=== PATIENT | female | born 1980 | race Caucasian/White ===

== ENCOUNTER 2021-06-08 10:47 | Outpatient (CLI) | payer BC, SELFPAY ==
--- NOTE | ~2021-06-08 | MR_ITS ---
EXAMINATION: MR lumbar spine wo con DATE: 06/08/2021 12:01 INDICATION: Left-sided sciatica. TECHNIQUE: Magnetic resonance imaging (MRI) of the lumbar spine was performed without intravenous con trast. Sequences included sagittal T2-weighted FSE, sagittal T2-weighted FS FSE, sagittal T1-weighted FSE, and axial T2-weighted FSE. COMPARISON: None FINDINGS: There is 5 mm retrolisthesis of L5 on S1. Vertebral body heights are normal. There is moder ately decreased disc at L5-S1 with endplate remodeling. The distal spinal cord signal intensity is no rmal. The conus medullaris is at L1. The following disc levels are specifically discussed: L1-L2: The disc does not extend beyond the endplate margin. There is mild bilateral facet joint osteo arthritis. There is no neural foraminal stenosis. There is no central canal stenosis. L2-L3: The disc does not extend beyond the endplate margin. There is mild bilateral facet joint osteo arthritis. There is no neural foraminal stenosis. There is no central canal stenosis. L3-L4: The disc does not extend beyond the endplate margin. There is mild right and moderate left fac et joint osteoarthritis. There is no neural foraminal stenosis. There is no central canal stenosis. L4-L5: The disc does not extend beyond the endplate margin. There is mild bilateral facet joint osteo arthritis. There is no neural foraminal stenosis. There is no central canal stenosis. L5-S1: The disc is bulging with superimposed left central extrusion that abuts the bilateral S1 nerve roots in the lateral recesses. There is no facet joint osteoarthritis. There is moderate bilateral n eural foraminal stenosis. There is mild central canal stenosis. There is moderate stenosis of the lat eral recesses. IMPRESSION: 1. Moderate spondylosis at L5-S1. Reviewed, dictated and finalized at location A.
== END 2021-06-08 10:48 | disposition home or self-care (01) ==
PROVIDERS: Visit Provider Internal Medicine
DX: M47.897 Other spondylosis, lumbosacral region (principal)
CPT/HCPCS: 72148

== ENCOUNTER 2021-11-25 08:52 | Outpatient (CLI) | payer BC, SELFPAY ==
--- NOTE | ~2021-11-25 | MM_ITS ---
EXAMINATION: MM screening sujata BI w viviana HISTORY: Screening TECHNIQUE: Craniocaudal and mediolateral oblique 3-D tomosynthesis images were obtained and synthetic 2-D images were generated. CAD analysis was submitted and interpreted. COMPARISON: No prior mammogram is available for comparison at this institution. BREAST PARENCHYMAL COMPOSITION: There are scattered areas of fibroglandular density. FINDINGS: There are asymmetries in the outer aspect of the right breast on CC view. There are no susp icious masses, calcifications or architectural distortion in the left breast to suggest malignancy. IMPRESSION: 1. Asymmetries of the right breast laterally on CC view. 2. Additional spot compression and mediolateral views with possible follow-up breast ultrasound recom mended. BI-RADS Category 0: Incomplete: Needs additional imaging evaluation. Reviewed, dictated and finalized at location A. GRINDER IMPRESSION: 1. Asymmetries of the right breast laterally on CC view. 2. Additional spot compression and mediolateral views with possible follow-up b reast ultrasound recommended. BI-RADS Category 0: Incomplete: Needs additional imaging evaluation.
== END 2021-11-25 08:53 | disposition home or self-care (01) ==
PROVIDERS: PCP Internal Medicine; Visit Provider Obstetrics & Gynecology
DX: Z12.31 Encounter for screening mammogram for malignant neoplasm of breast (principal); R92.8 Other abnormal and inconclusive findings on diagnostic imaging of breast
CPT/HCPCS: 77063; 77067

== ENCOUNTER 2022-01-20 12:58 | Outpatient (CLI) | payer BC, SELFPAY ==
--- NOTE | ~2022-01-20 | MMUS_ITS ---
EXAMINATION: MM diagnostic sujata RT w viviana, US breast RT limited HISTORY: Right breast asymmetry on screening mammogram TECHNIQUE: Additional 3-D tomosynthesis images of the right breast were performed and synthetic 2-D i mages were generated. CAD analysis was submitted and interpreted. High resolution limited right breas t ultrasound was performed. COMPARISON: 11/25/2021 BREAST PARENCHYMAL COMPOSITION: There are scattered areas of fibroglandular density. FINDINGS: MAMMOGRAPHIC FINDINGS: No definite asymmetry persists with spot compression views of the right breast. There is no suspiciou s mass, calcification, or architectural distortion. ULTRASOUND: There is a 7 mm cyst at the 9:00 location 5 cm from the nipple. IMPRESSION: 1. No mammographic or sonographic evidence of malignancy. 2. Recommend routine screening mammography in one year. BI-RADS Category 2: Benign finding(s). Reviewed, dictated and finalized at location A. IMPRESSION: 1. No mammographic or sonographic evidence of malignancy. 2. Recommend routine screening mammography in one year. BI-RADS Category 2: Benign finding(s).
== END 2022-01-20 12:59 | disposition home or self-care (01) ==
LOC: ANHIMG 13:04
PROVIDERS: PCP Internal Medicine; Visit Provider Obstetrics & Gynecology
DX: R92.8 Other abnormal and inconclusive findings on diagnostic imaging of breast (principal)
CPT/HCPCS: 76642; 77061; 77065; G0279

== ENCOUNTER 2022-02-18 10:18 | Emergency (ER) | payer BC, SELFPAY ==
[2022-02-18 10:26] VITALS: BP 124/82; PULSE 88; RESP 18; TEMP 36.7; O2SAT 100
--- NOTE | 2022-02-18 10:57 | ED.URI ---
HPI - URI/Sore Throat General Chief Complaint: Upper Respiratory Infection Stated Complaint: bilateral ear,neck pain,bilateral arm pain Time Seen by Provider: 02/18/22 10:49 Source: patient and RN notes reviewed Mode of arrival: ambulatory Limitations: no limitations History of Present Illness HPI Narrative: Patient presents today complaining of a 2-day history of sore throat, headache, body aches, rhinorrhea, cough, and bilateral ear pressure. Denies fever or any additional symptoms. Denies sick contacts. Patient has been taking Delsym, Aleve, and NyQuil at home without much relief. She has been vaccinated against COVID-19. MD elicited complaint: cough and sore throat Related Data Home Medications Medication Instructions Recorded Confirmed No Home Medications 02/18/22 02/18/22 Allergies Allergy/AdvReac Type Severity Reaction Status Date / Time No Known Drug Allergies Allergy Unknown Verified 02/18/22 10:37 Review of Systems Review of Systems: CONSTITUTIONAL: Denies fever, chills, or sweats.+ Body aches EYES: Denies visual changes, redness, or discharge. ENT: Denies congestion. + Sore throat, bilateral ear pressure, rhinorrhea CARDIOVASCULAR: Denies chest pain, palpitations, or edema. RESPIRATORY: Denies dyspnea.+ Cough GASTROINTESTINAL: Denies abdominal pain, nausea, vomiting, or diarrhea. GENITOURINARY: Denies dysuria or hematuria. SKIN: Denies rash, itching, or wounds. MUSCULOSKELETAL: Denies back pain, joint pain, or myalgia. NEUROLOGIC: Denies numbness, tingling, or weakness.+ Headache PSYCH: Denies depression or anxiety. PMFSH Comments At time of signature, I have reviewed and agree with nursing past medical, surgical, social and family history unless otherwise noted. Please see nursing chart for further information. There is no relevant family history pertinent to the presenting complaint Exam Narrative: GENERAL: Well-appearing, well-nourished, and in no acute distress. HEAD: Normocephalic, atraumatic. EYES: EOMI. No redness or drainage. Conjunctivae normal. ENT: Mucous membranes pink and moist. Nares clear. No rhinorrhea. TMs normal bilaterally. Throat erythematous posteriorly without edema or exudate. Uvula midline. NECK: Normal AROM. Supple. No lymphadenopathy. CHEST: No respiratory distress. Clear to auscultation. HEART: Regular rate and rhythm. No murmur appreciated. Normal peripheral pulses. EXTREMITIES: Normal range of motion. No edema. SKIN: Warm, dry, no rash. Capillary refill normal. Normal skin turgor. NEURO: No focal deficits. Alert and oriented x3. Gait steady. PSYCH: Normal affect. No signs of depression or anxiety. Course Course Level of Care: Express Care Visit Vital Signs Vital signs: Vital Signs Temperature 98.0 F 02/18/22 10:26 Pulse Rate 88 02/18/22 10:26 Respiratory Rate 18 02/18/22 10:26 Blood Pressure 124/82 02/18/22 10:26 Pulse Oximetry 100 02/18/22 10:26 Temperature 98.0 F 02/18/22 10:26 Pulse Rate 88 02/18/22 10:26 Respiratory Rate 18 02/18/22 10:26 Blood Pressure 124/82 02/18/22 10:26 Pulse Oximetry 100 02/18/22 10:26 Reviewed. Pt has been instructed to follow up with her PCP regarding her elevated blood pressure today. MDM - URI/Sore Throat Differential Diagnosis Differential diagnosis: Likely upper respiratory infection, otitis media, sinusitis, viral infection, influenza, pharyngitis and other (Strep throat, COVID-19) Lab Data Attestation: I reviewed the patient's lab results. Lab results narrative: Rapid COVID-19 positive. Influenza negative Labs: Strep Screen Presumptive Negative *(Reference Range: Negative)* Critical Care Time Critical Care Time Critical Care Time: No Discharge Plan Discharge Clinical Impression: COVID-19 Patient Disposition: Home, Self-Care Condition: Stable Instructions: COVID-19 (Coronavirus Disease 2019) (ED)
== END 2022-02-18 11:06 | disposition home or self-care (01) ==
PROVIDERS: Emergency Provider Nurse Practitioner; PCP Internal Medicine
DX: U07.1 COVID-19 (principal)
CPT/HCPCS: 87081; 87426; 87804; 87880; 99213; C9803; G0463

== ENCOUNTER 2025-07-30 12:02 | Emergency (ER) | payer BC, SELFPAY ==
[2025-07-30 12:07] VITALS: BP 125/73; PULSE 67; RESP 18; TEMP 36.5; O2SAT 99
--- NOTE | 2025-07-30 12:12 | ED.URI ---
HPI - URI/Sore Throat General Chief Complaint: Upper Respiratory Infection Stated Complaint: Sinus Infection Time Seen by Provider: 07/30/25 12:10 Source: patient Mode of arrival: ambulatory Limitations: no limitations History of Present Illness HPI Narrative: Jet is a 44-year-old female patient presenting to the clinic today with complaints of sinus pressure, sinus congestion, and ear pain. She reports her symptoms have been going on for approximately 1 month. Was originally seen and diagnosed with a URI and given cough medications, a week later she develops cough and some shortness of breath was seen and diagnosed with pneumonia and had finished taking 5 days of Augmentin. States that she feels as though her chest is better she still has sinus pressure and congestion. Is blowing out green nasal drainage. States that the Augmentin gave her very bad diarrhea while she was taking it. Denies any known fevers, chills, body aches. No shortness of breath or chest pain. Related Data Home Medications ?Medication ?Instructions ?Recorded ?Confirmed ?Last Taken ?Type albuterol sulfate 90 mcg/actuation 1 inh inhalation Q4-6H PRN 07/30/25 07/30/25 Unknown History breath activated powder inhaler,sensor levonorgestrel (Mirena) 1 device intrauterine ONCE 07/30/25 07/30/25 Unknown History semaglutide (weight loss) 2.4 2.4 mg subcut WEEKLY 07/30/25 07/30/25 Unknown History mg/0.75 mL subcutaneous pen injector (Wegovy) Allergies Allergy/AdvReac Type Severity Reaction Status Date / Time No Known Drug Allergies Allergy Unknown Unknown Verified 07/30/25 12:08 Review of Systems Review of Systems: Pertinent positives per HPI. Patient denies any fever, chills, rash, visual changes, dizziness, shortness of breath, chest pain, palpitations, nausea, vomiting, diarrhea, constipation, abdominal pain, or any urinary issues. [facility] Past Medical History Medical History Asthma Surgical History Surgical History History of ear surgery Bells teeth removed H/O adenoidectomy History of tonsillectomy Hx of dilation and curettage Family History Family History Grandparent Hypertension Dementia Macular degeneration Skin cancer Diabetes mellitus CHF (congestive heart failure) Father Acute myocardial infarction, Onset Age: 38 Mother Hypertension Pre-diabetes Breast cancer Social History Social History Smoking status: Former smoker Alcohol intake: current Alcohol use details: occas Substance use: never Comments At the time of my signature, I reviewed and agree with the nursing past medical, surgical, social, and family history. There is no relevant family history pertinent to the patient complaint. Exam Narrative: General: Well-developed, well nourished, in no apparent distress Head: Normocephalic, atraumatic Eyes: Pupils equally round and reactive to light bilaterally, EOM intact, sclera and conjunctive clear, no discharge, lids normal Ears: TMs intact and congested, ear canals clear, no drainage, grossly hearing normal. Nose: Nares patent, green nasal discharge, monitor inflammation, maxillary and frontal sinus tenderness. Mouth: Oral pharynx red without lesions or masses, good dentition, MMM. Postnasal drip Neck: Supple, trachea midline, no enlargement of anterior or posterior cervical nodes, no thyroid masses or goiter palpable. Cardio: Regular rate and rhythm, s1 and s2 normal, no murmur appreciated. Resp: Clear to auscultation bilaterally, no rhonchi, rales, wheezing or rubs Course Course Emergency Course: Portions of this record may have been created with voice recognition software. Level of Care: Express Care Visit Vital Signs Vital signs: Vital Signs Temperature 36.5 C 07/30/25 12:07 Pulse Rate 67 07/30/25 12:07 Respiratory Rate 18 07/30/25 12:07 Blood Pressure 125/73 07/30/25 12:07 Pulse Oximetry 99 07/30/25 12:07 Oxygen Delivery Room Air 07/30/25 12:07 Temperature 36.5 C 07/30/25 12:07 Pulse Rate 67 07/30/25 12:07 Respiratory Rate 18 07/30/25 12:07 Blood Pressure 125/73 07/30/25 12:07 Pulse Oximetry 99 07/30/25 12:07 Oxygen Delivery Room Air 07/30/25 12:07 Vital signs reviewed MDM - URI/Sore Throat MDM Narrative Medical decision making narrative: At the time of visit patient is resting comfortably on the exam table. Patient appears to be nontoxic. complaints of sinus pressure, sinus congestion, and ear pain. She reports her symptoms have been going on for approximately 1 month. Was originally seen and diagnosed with a URI and given cough medications, a week later she develops cough and some shortness of breath was seen and diagnosed with pneumonia and had finished taking 5 days of Augmentin. States that she feels as though her chest is better she still has sinus pressure and congestion. Is blowing out green nasal drainage. Denies any known fevers, chills, body aches. No shortness of breath or chest pain. Has taken Mucinex for her symptoms. On exam patient has sinus pressure over the maxillary and frontal sinuses with green nasal drainage and moderate inflammation to the anterior turbinates. Bilateral TMs congested and intact. Plan: I suspect patient has acute bacterial rhinosinusitis. Prescription for doxycycline and prednisone was sent to the pharmacy. Supportive measures were discussed with the patient and they voiced understanding discharge instructions and agrees to treatment plan. Return precautions reviewed Differential Diagnosis Differential diagnosis: Likely upper respiratory infection, otitis media, sinusitis, viral infection, bronchitis, influenza, pharyngitis and other (COVID) Discharge Plan Discharge Clinical Impression: Acute bacterial rhinosinusitis Patient Disposition: Home Condition: Stable Instructions: Antibiotic Form, Rhinosinusitis (ED) Additional Instructions: Take prescription medications only as prescribed-doxycycline and prednisone Increase fluids and stay well hydrated May take Tylenol or motrin as directed on bottle for pain/fever May use Flonase 1 spray in each nare daily May take OTC antihistamines such as Zyrtec or Claritin daily as directed on bottle May apply Vicks vapor rub to chest to open sinuses Sinus rinses for congestion Cepacol spray, cough drops, throat lozenges, warm tea with honey/lemon, gargle salt water to soothe throat BRAT diet for diarrhea Clear liquids x 24 hours then advance as tolerated for nausea/vomiting Go to the ED if you develop a worsening in your condition- high fever not controlled by Tylenol or Motrin, dehydration, weakness, lethargy, shortness of breath, or chest pain. Follow up with your PCP in 3-5 days if symptoms persist. Patient Language: Citizen Of [place] Prescriptions: New doxycycline monohydrate 100 mg capsule 100 mg PO BID 10 Days Qty: 20 0RF prednisone 20 mg tablet 40 mg PO DAILY 5 Days Qty: 10 0RF No Action Wegovy 2.4 mg/0.75 mL pen injector 2.4 mg subcut WEEKLY Mirena 21 mcg/24hr (up to 8 yrs) 52 mg intrauterine device 1 device intrauterine ONCE Rx Instructions: as a single dose albuterol sulfate 90 mcg/actuation aero powdr breath act w/sensor 1 inh inhalation Q4-6H PRN escitalopram oxalate [Lexapro] 10 mg tablet 10 mg PO DAILY Qty: 30 1RF Follow-up/Referrals: PHYSICIAN,WEED CONTROL INSPECTOR [Primary Care Provider, Internal Medicine] Time of Disposition: 12:13 Quality NIHSS Nursing Documentation ED NIHSS nursing documentation: reviewed/agree
--- OUTSIDE RECORDS SUMMARY | 2025-07-30 14:32 | XMS_ITS | Clinical Summary ---
Author Organization [facility] Address [address] [place] [id number] Care Team Providers Care Automotive Designer Name Role Phone Luke Rubio MD Primary Care Provider [phone] Allergies No known active allergies Medications fluticasone propionate (FLONASE) 50 mcg/actuation nasal sprayIndication s:Allergic Rhinitis Administer 2 sprays into each nostril 2 (two) times a day 4 025 Discontinu ed(Therapy completed) loratadine (CLARITIN) 10 mg tabletIndicatio ns:Cough, unspecified type Take 1 tablet (10 mg total) by mouth daily 4 025 Discontinu ed(Therapy completed) amoxicillin-cla vulanate (AUGMENTIN) 875-125 mg per tabletIndicatio ns:Pneumonia, Community Acquired Take 1 tablet by mouth 2 (two) times a day for 10 days 5 025 Active Problems Problem Noted Date Diagnosed Date Ear pain, left 10/17/2023 Assessment & Plan (10/17/2023 5:22 PM 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): VSS, NAD , left canal with some erythema noted, mild tragal and canal TTP Mild possible soft wax noted in canal , patient used home ear wax kit Will tx for possible acute otitis externa , ET dysfunction Ofloxacin Medrol dose Zyrtec, flonase 7-10 days PCP for persisting symptoms Strep pharyngitis 09/05/2023 Assessment & Plan (09/05/2023 2:54 PM CDT): Rapid strep positive Patient c/o ear pain however unable to visualize right TM due to cerumen, will treat with Augmentin to cover for strep and AOM Tessalon prn Warm salt water gargles Tylenol (acetaminophen) or Advil/Motin (ibuprofen) as needed per package directions for aches/pains. 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 12/22/2013 Encounters Date Type Department Care Team Description 07/15/2025 11:00 AM CDT Office Visit [facility] [address] [place] [address] Lorena Castanon, VICTOR M Pneumonia due to infectious organism, unspecified laterality, unspecified part of lung (Primary Dx); Sore throat; Cough, unspecified type; Chest congestion from Last 3 Months Surgical History Surgery Date Site/Laterality Comments DILATION AND CURETTAGE OF UTERUS X3 Medical History Medical History Date Comments Asthma Family History Medical History Relation Name Comments Heart disease Father Cancer Mother Breast cancer Neg Hx Ovarian cancer Neg Hx Relation Name Status Comments Father Mother Social History Tobacco Use Types Packs/Day Years Used Date Smoking Tobacco: Former Smokeless Tobacco: Never Alcohol Use Standard Drinks/Week Comments Yes 0 (1 standard drink = 0.6 oz pur e alcohol) Comments No Sex and Gender Information Value Date Recorded Sex Assigned at Not on file Legal Sex Female 4:26 AM 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 Gender Identity Female 05/18/2020 2:31 PM CDT Sexual Orientation Straight 05/18/2020 2 :31 PM CDT 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 Not on file Not on file Obstetrics History Para Term AB IAB SAB Ectopic Multiple Livin g Live Births 5 2 2 Date Outcome GA Total Labor Labor/2nd/3rd Weight Sex Type Anes PTL Corinne A1 A5 Name Clin Term Term Last Filed Vital Signs Vital Sign Reading Time Taken Comments Blood Pressure 129/81 07/15/2025 10:57 AM CDT Pulse 60 07/15/2025 10:57 AM CDT Temperature 36.6 C (97.8 F) 07/15/2025 10:57 AM CDT Respiratory Rate 18 07/15/2025 10:57 AM CDT Oxygen Saturation 97% 07/15/2025 10:57 AM CDT Inhaled Oxygen Concentration - - Weight 83.5 kg (184 lb) 07/15/2025 10:57 AM CDT Height 167.6 cm (5' 6) 07/15/2025 10:57 AM CDT Body Mass Index 29.7 07/15/2025 10:57 AM CDT Plan of Treatment Health Maintenance Due Date Last Done Comments Cervical Cancer Screening 1980 Depression Screening 1980 Hepatitis C Screening 1980 DTaP/Tdap/Td Vaccine (1 - Tdap) 1991 Varicella Vaccines (1 of 2 - 13+ 2-dose series) 1993 Hepatitis B Screening 1998 Regular Well Visit/Exam 18-64 1998 HPV Vaccines (1 - 3-dose SCDM series) 2007 Covid-19 Vaccine ( season) 2025 10/12/2021, 12/23/2020, 11/22/2020 Influenza Vaccine (#1) 2025 , 08/03/2022, 08/10/2021, Additional history exists Breast Cancer Screening-Mammogram 02/11/2026 02/11/2025 Pneumococcal vaccine <65 Aged Out No longer eligible based on patient's age to complete this topic Procedures Procedure Name Priority Date/Time Associated Diagnosis Comments POCT RAPID STREP Routine 07/15/2025 11:0 6 AM CDT Sore throat Cough, unspecified type Chest congestion POC INFLUENZA A/B, COVID-19 ANTIGEN Routine 07/15/2025 11:06 AM CDT Sore throat Cough, unspecified type Chest congestion SCREENING MAMMOGRAM BILATERAL W BENJIE Schedule Routine, Read Routine (OP Routine) 02/11/2025 9:04 AM CDT Screening mammogram, encounter for from Last 3 Months or Most Recently Relevant to Health Maintenance Results * POC Influenza A/B, COVID-19 antigen (07/15/2025 11:06 AM CDT) Influenza A Ag, POC Negative Negative [facility] Influenza B Ag, POC Negative Negative [facility] COVID-19 Ag POC Presumptive Negative Presumptive Negative, Invalid [facility] Nasopharyngeal 07/15/2025 11 :06 AM CDT Lorena Castanon LIQUID YEAST SUPERVISOR POINT OF CARE TEST ORDERAB LES Final Result Performing Organization Address City/State/[facility] Co de Phone Number [address] [phone] * POCT rapid strep A (07/15/2025 11:06 AM CDT) Rapid Strep A, POC Negative Negative Swab 07/15/2025 11:0 6 AM CDT Lorena Castanon LIQUID YEAST SUPERVISOR POINT OF CARE TEST ORDERAB LES Final Result * Screening Mammogram Bilateral W Benjie (02/11/2025 9:04 AM CDT) Anatomical Region Laterality Modality Breast Bilateral Mammography Impressions 02/24/2025 1:07 PM CDT Bilateral No evidence of malignancy in either breast. OVERALL BI-RADS FINAL ASSESSMENT: 1 - Negative RECOMMENDATION: Recommend bilateral annual screening mammography. Narrative 02/24/2025 1:07 PM CDT EXAMINATION: Screening Mammogram Bilateral W Benjie: 02/11/2025 COMPARISON: Relevant prior outside studies available at the time of interpretation were reviewed. TECHNIQUE: Mammography was performed with 2D and digital breast tomosynthesis (DBT) images. CAD was utilized. BREAST PARENCHYMAL COMPOSITION: The breasts are heterogeneously dense, which may obscure small masses. FINDINGS: There is no new suspicious finding in either breast on mammogram. Merlin Archuleta MD IMG MAMMO PROCEDURES Final R esult from Last 3 Months or Most Recently Relevant to Health Maintenance [place] Recommend[place] Care Teams Automotive Designer Relationship Specialty Start Date End Date Luke Rubio MD [address] [place] [address] [phone] PCP - General Internal Medicine 04/29/20
--- OUTSIDE RECORDS SUMMARY | 2025-07-30 14:32 | XMS_ITS | Clinical Summary ---
Author Organization [facility] Address [address] [place] [address] Care Team Providers Care Utility System Repairer Name Role Phone Luke Rubio MD Primary Care Provider [phone] [facility],non-owned Affiliates and Associated Physician Practices is amultiple site organization consisting of ambulatory clinics and hospital sitesin [place], [place], [place] and [place]. This disclosure is being madepursuant to the Care Everywhere program and may not contain all information available regarding this patient. Last updated 18.[facility] [employer] Allergies No known active allergies Medications * Be aware that medications may not be up to date on this document. Alwaysverify current medications with the patient. 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 Family History Medical History Relation Name Comments Hypertension Mother Relation Name Status Comments Father (Age 38) Heart shannan ck Mother Alive Social History Tobacco Use Types Packs/Day Years Used Date Smoking Tobacco: Never Smokeless Tobacco: Never Comments Unknown Sex and Gender Information Value Date Recorded Sex Assigned at Not on file Legal Sex Female 3:07 PM CDT Gender Identity Not on file Sexual Orientation Not on file Last Filed Vital Signs Vital Sign Reading Time Taken Comments Blood Pressure - - Pulse - - Temperature - - Respiratory Rate - - Oxygen Saturation - - Inhaled Oxygen Concentration - - Weight 91.5 kg (201 lb 12.8 oz) 021 11:20 AM CDT Height 167.6 cm (5' 6) 08/08/2021 11:2 0 AM CDT Body Mass Index 32.57 08/08/2021 11:20 AM CDT Plan of Treatment Health Maintenance Due Date Last Done Comments LIPID TESTING 1980 MAMMOGRAM 1980 HIV SCREENING 1995 HEPATITIS C SCREENING 12/07/1998 DTAP/TDAP/TD VACCINES (1 - Tdap) 1999 HEPATITIS B VACCINE (1 of 3 - 19+ 3-dose series) 1999 HPV VACCINE (1 - 3-dose SCDM series) 2007 SCREENING FOR DIABETES 06/16/2021 DEPRESSION SCREENING 11/05/2024 COVID-19 VACCINE (3 - 2024-2 6 season) 2025 12/23/2020, 11/22/2020 INFLUENZA VACCINE (#1) 2025 ZOSTER VACCINE (1 of 2) 2030 HIB VACCINE Aged Out No longer eligi ble based on patient's age to complete this topic MENINGOCOCCAL (Group B) VACCINE SHARED DECISION-MAKING Aged Out No longer eligible based on patient's age to complete this topic MENINGOCOCCAL GROUPS A/C/Y/W VACCINE Aged Out No longer eligible b ased on patient's age to complete this topic PNEUMOCOCCAL VACCINE Aged Out No long er eligible based on patient's age to complete this topic Insurance [facility] Care Teams Utility System Repairer Relationship Specialty Start Date End Date Luke Rubio MD [address] [place] [address] [place] [id number] PCP - General 06/15/21
--- OUTSIDE RECORDS SUMMARY | 2025-07-30 14:32 | XMS_ITS | Encounter Summary ---
Author Organization [facility] Address [address] [place] [address] Care Team Providers Care Grid Molder Name Role Phone Luke Rubio MD Primary Care Provider [phone] Reason for Visit * Reason Comments Refill Request Encounter Details Date Type Department Care Team (Late st Contact Info) Description 08/18/2021 Refill [facility] - Orthopedics [address] [place] [address], [facility] [place] [phone] Benoit Ni MD [address] [place] [address] [place] [address] Refill Request Social History Tobacco Use Types Packs/Day Years Used Date Smoking Tobacco: Never Smokeless Tobacco: Never Comments Unknown Sex and Gender Information Value Date Recorded Sex Assigned at Not on file Legal Sex Female 3:07 PM CDT Gender Identity Not on file Sexual Orientation Not on file documented as of this encounter Plan of Treatment Not on file documented as of this encounter Visit Diagnoses Not on filedocumented in this encounter Care Teams Grid Molder Relationship Specialty Start Date End Date Luke Rubio MD [address] [place] [address] [address] [place] [address] PCP - General 06/15/21 documented as of this encounter
== END 2025-07-30 12:19 | disposition home or self-care (01) ==
PROVIDERS: Emergency Provider Nurse Practitioner Family
DX: J01.90 Acute sinusitis, unspecified (principal); B96.89 Other specified bacterial agents as the cause of diseases classified elsewhere; Z79.899 Other long term (current) drug therapy; Z87.891 Personal history of nicotine dependence
CPT/HCPCS: 99213; G0463